=== PATIENT | male | born 1945 | race African-American/Black ===

== ENCOUNTER 2019-03-26 17:03 | Inpatient (IN) | payer MEDICARE ==
[~2019-03-26] VITALS: Ht 188 cm; Wt 66.3 kg
[2019-03-26] MEDS ORDERED: cefTRIAXone 1 GM in NS 55 ML IVPB ONE (17:15)
[2019-03-26] MEDS ORDERED: Solu-MEDROL 125mg Inj IVP ONE (17:15)
[2019-03-26] MEDS ORDERED: Azithromycin 500 MG in NS 275 ML IV ONE (17:15)
--- NOTE | 2019-03-26 17:18 | Emergency Room Report ---
History of Present Illness General Chief Complaint: Dyspnea/Respdistress Source: Patient, EMS Present Illness HPI 74-year-old male, history of COPD, history of smoking, history is limited currently due to patient's acute respiratory distress, comes in with shortness of breath 1 day prior to arrival, no unknown aggravating relieving factors severity is severe, constant, patient has been using accessory muscles per EMS, unknown if sputum production or fever/chills, patient states he is feeling very tired. Allergies: Coded Allergies: No Known Allergies (Unverified , 03/26/19) Patient History Limited by: medical condition - Acute respiratory distress Past Medical History: see triage record Reviewed Nursing Documentation: PMH: Agreed; PSxH: Agreed Review of Systems All Other Systems: limited - Acute respiratory distress Physical Exam Vital Signs Date Time Temp Pulse Resp B/P (MAP) Pulse Ox O2 Delivery O2 Flow Rate FiO2 03/26/19 16:59 98.4 116 28 150/90 (110) 97 Simple Mask 6.0 Sp02 EP Interpretation: reviewed, abnormal - SaO2 reduced General Appearance: severe distress, other - Responsive Head: normocephalic, atraumatic Eyes: bilateral eye PERRL, bilateral eye EOMI ENT: uvula midline, moist mucus membranes Neck: supple, thyroid normal, supple/symm/no masses Respiratory: decreased breath sounds, accessory muscle use, wheezing - Severe wheezing bilaterally Cardiovascular #1: normal peripheral pulses, no edema, no gallop, no murmur, tachycardia Gastrointestinal: non tender, soft, no guarding, no rebound Musculoskeletal: normal inspection Neurologic: alert, responsive Psychiatric: anxious Skin: no rash, warm/dry Procedures Critical Care Time Critical Care Time Given the critical condition in which the patient arrived, the patient was immediately assessed by myself and the nurse, and cardiac monitoring initiated due to the potential for rapid decompensation of the patient's clinical condition. During the course of the patient's stay, I spent a considerable amount of time at the bedside performing serial re-evaluations of the patient's hemodynamic and clinical status because of the recognized potential threat to life or limb in this condition. I then had a chance to review not only all of the available current laboratory and radiographic studies obtained today, but I also reviewed old records available to me at the time. Additionally, any ancillary information available including business systems advisor records were reviewed. Sequential vital signs were obtained. Critical Care time of 71 minutes was performed exclusive of billable procedures. Medical Decision Making Diagnostic Impression: Primary Impression: Respiratory distress Additional Impressions: COPD exacerbation Hypercapnia ER Course 74-year-old male presents with acute respiratory distress, initially altered, concerning for possible COPD exacerbation, hypercapnia, pneumonia superimposed infection Patient was emergently placed on BiPAP magnesium was started, 6 rounds of duo nebs, steroids, fluids and antibiotics were also started Spoke with daughter who states patient is DNR, paperwork was provided Patient required multiple re-evaluations, requiring titration of BiPAP, duo nebs , to improve hypercapnia, please refer to blood gas draws based on reassessments Hypercapnia was slowly improving with continued titration of the BiPAP as well as SaO2 to be below 94% Patient significantly improved will admit patient to stepdown Patient admitted to Dr. Galdamez Laboratory Tests Test 03/26/19 17:05 03/26/19 17:26 03/26/19 18:08 03/26/19 18:55 White Blood Count 4.8 K/UL (4.8-10.8) Red Blood Count 4.96 M/UL (4.70-6.10) Hemoglobin 10.9 G/DL (14.2-18.0) L Hematocrit 36.6 % (42.0-52.0) L Mean Corpuscular Volume 74 FL (80-99) L Mean Corpuscular Hemoglobin 21.9 PG (27.0-31.0) L Mean Corpuscular Hemoglobin Concent 29.7 G/DL (32.0-36.0) L Red Cell Distribution Width 12.5 % (11.6-14.8) Platelet Count 135 K/UL (150-450) L Mean Platelet Volume 6.0 FL (6.5-10.1) L Neutrophils (%) (Auto) 64.3 % (45.0-75.0) Lymphocytes (%) (Auto) 22.7 % (20.0-45.0) Monocytes (%) (Auto) 10.4 % (1.0-10.0) H Eosinophils (%) (Auto) 1.0 % (0.0-3.0) Basophils (%) (Auto) 1.6 % (0.0-2.0) Prothrombin Time 11.6 SEC (9.30-11.50) H Prothrombin Time INR 1.1 (0.9-1.1) PTT 22 SEC (23-33) L Sodium Level 145 MMOL/L (136-145) Potassium Level 3.6 MMOL/L (3.5-5.1) Chloride Level 105 MMOL/L (98-107) Carbon Dioxide Level 35 MMOL/L (21-32) H Anion Gap 5 mmol/L (5-15) Blood Urea Nitrogen 18 mg/dL (7-18) Creatinine 0.7 MG/DL (0.55-1.30) Estimate Glomerular Filtration Rate mL/min (>60) Glucose Level 202 MG/DL (74-106) H Lactic Acid Level 0.80 mmol/L (0.4-2.0) Calcium Level 8.7 MG/DL (8.5-10.1) Phosphorus Level 5.4 MG/DL (2.5-4.9) H Magnesium Level 1.4 MG/DL (1.8-2.4) L Total Bilirubin 0.7 MG/DL (0.2-1.0) Aspartate Amino Transferase (AST) 50 U/L (15-37) H Alanine Aminotransferase (ALT) 56 U/L (12-78) Alkaline Phosphatase 45 U/L (46-116) L Creatine Kinase MB 2.6 NG/ML (0.0-3.6) Troponin I 0.016 ng/mL (0.000-0.056) Pro-B-Type Natriuretic Peptide 149 pg/mL (0-125) H Total Protein 7.7 G/DL (6.4-8.2) Albumin 3.7 G/DL (3.4-5.0) Globulin 4.0 g/dL Albumin/Globulin Ratio 0.9 (1.0-2.7) L Lipase 132 U/L (73-393) Arterial Blood pH 7.120 (7.350-7.450) 7.185 (7.350-7.450) Arterial Blood Partial Pressure CO2 117.1 mmHg (35.0-45.0) *H 99.9 mmHg (35.0-45.0) *H Arterial Blood Partial Pressure O2 160.4 mmHg (75.0-100.0) H 70.5 mmHg (75.0-100.0) L Arterial Blood HCO3 37.2 mmol/L (22.0-26.0) H 36.9 mmol/L (22.0-26.0) H Arterial Blood Oxygen Saturation 0.0 % (95-100) *L 87.9 % (95-100) *L Arterial Blood Base Excess 3.4 (-2-2) H 5.8 (-2-2) H Aneesh Test Positive Positive Urine Color Yellow Urine Appearance Clear Urine pH 5 (4.5-8.0) Urine Specific [place] 1.030 (1.005-1.035) Urine Protein 2+ (NEGATIVE) H Urine Glucose (UA) 3+ (NEGATIVE) H Urine Ketones Negative (NEGATIVE) Urine Blood 5+ (NEGATIVE) H Urine Nitrite Negative (NEGATIVE) Urine Bilirubin Negative (NEGATIVE) Urine Urobilinogen Normal MG/DL (0.0-1.0) Urine Leukocyte Esterase Negative (NEGATIVE) Urine RBC 20-30 /HPF (0 - 0) H Urine WBC 0-2 /HPF (0 - 0) Urine Squamous Epithelial Cells Few /LPF (NONE/OCC) Urine Bacteria Few /HPF (NONE) Urine Hyaline Casts 5-10 /LPF (NONE) H Urine Mucus Moderate /LPF (NONE/OCC) H Test 03/26/19 20:42 Arterial Blood pH 7.260 (7.350-7.450) Arterial Blood Partial Pressure CO2 66.2 mmHg (35.0-45.0) *H Arterial Blood Partial Pressure O2 94.0 mmHg (75.0-100.0) Arterial Blood HCO3 29.2 mmol/L (22.0-26.0) H Arterial Blood Oxygen Saturation 96.0 % (95-100) Arterial Blood Base Excess 1.0 (-2-2) Aneesh Test Positive EKG Diagnostic Results EKG Time: 17:28 EP Interpretation: Sinus tachycardia, rate 117, qtc 460, no acute st elevations , right axis de Rhythm Strip Diag. Results Rhythm Strip Time: 17:18 EP Interpretation: yes Rate: 119 Rhythm: other - Sinus Tachycardia Chest X-Ray Diagnostic Results Chest X-Ray Diagnostic Results : Chest X-Ray Ordered: Yes # of Views/Limited/Complete: 1 View Indication: Shortness of Breath EP Interpretation: Yes Interpretation: other - Left lower lobe consolidation Impression: Other - Left lower lobe consolidation Electronically Signed by: Kyaw Alcala MD Last Vital Signs Date Time Temp Pulse Resp B/P (MAP) Pulse Ox O2 Delivery O2 Flow Rate FiO2 03/26/19 16:59 98.4 116 28 150/90 (110) 97 Simple Mask 6.0 Disposition: ADMITTED INPATIENT Condition: Serious Kyaw Alcala MD Mar 26, 2019 17:18
[2019-03-26 17:26] VITALS: BP 150/90
[2019-03-26 17:41] LABS: BASOPHILS % (AUTO) 1.6 % (0.0-2.0); HEMATOCRIT 36.6 % (42.0-52.0); HEMOGLOBIN 10.9 G/DL (14.2-18.0); LYMPHOCYTES % (AUTO) 22.7 % (20.0-45.0); MEAN CORPUSCULAR VOLUME 74 FL (80-99); MONOCYTES % (AUTO) 10.4 % (1.0-10.0); NEUTROPHILS % (AUTO) 64.3 % (45.0-75.0); PLATELET COUNT 135 K/UL (150-450); RED BLOOD COUNT 4.96 M/UL (4.70-6.10); RED CELL DISTRIBUTION WIDTH 12.5 % (11.6-14.8); WHITE BLOOD COUNT 4.8 K/UL (4.8-10.8)
[2019-03-26 17:42] VITALS: BP 120/80
[2019-03-26] MEDS: Albuterol ud Inhalation HHN SCH ×6 (17:45→18:52)
[2019-03-26] MEDS: Ipratropium 0.02% Inh Soln 2.5ml UD HHN SCH ×6 (17:45→18:52)
[2019-03-26 17:53] LABS: INR 1.1 (0.9-1.1)
[2019-03-26 18:29] LABS: ANION GAP 5 mmol/L (5-15); BLOOD UREA NITROGEN 18 mg/dL (7-18); CALCIUM 8.7 MG/DL (8.5-10.1); CARBON DIOXIDE 35 MMOL/L (21-32); CHLORIDE 105 MMOL/L (98-107); CREATININE 0.7 MG/DL (0.55-1.30); POTASSIUM 3.6 MMOL/L (3.5-5.1); SODIUM 145 MMOL/L (136-145)
[2019-03-26 18:41] LABS: ALANINE AMINOTRANSFERASE 56 U/L (12-78); ALBUMIN 3.7 G/DL (3.4-5.0); ALBUMIN/GLOBULIN RATIO 0.9 (1.0-2.7); ALKALINE PHOSPHATASE 45 U/L (46-116); ASPARTATE AMINO TRANSFERASE 50 U/L (15-37); BILIRUBIN,TOTAL 0.7 MG/DL (0.2-1.0); CKMB 2.6 NG/ML (0.0-3.6); PHOSPHORUS 5.4 MG/DL (2.5-4.9)
[2019-03-26 19:14] LABS: APPEARANCE,URINE CLEAR; BILIRUBIN, URINE NEGATIVE (NEGATIVE); GLUCOSE, URINE (UA) 3+ (NEGATIVE); KETONES,URINE NEGATIVE (NEGATIVE); LEUKOCYTE ESTERASE ,URINE NEGATIVE (NEGATIVE); NITRITE,URINE NEGATIVE (NEGATIVE); PH,URINE 5 (4.5-8.0); PROTEIN,URINE 2+ (NEGATIVE); UROBILINOGEN,URINE NORMAL MG/DL (0.0-1.0)
[2019-03-26 19:15] VITALS: BP 120/80
[2019-03-26 19:15] LABS: COLOR,URINE YELLOW
[2019-03-26] MEDS ORDERED: FLOMAX0.4 MG ORAL (21:16)
[2019-03-26] MEDS ORDERED: FAMOTIDINE20 MG ORAL (21:16)
[2019-03-26] MEDS ORDERED: PROSCAR5 MG ORAL (21:16)
[2019-03-26] MEDS ORDERED: ATIVAN1 MG ORAL (21:16)
[2019-03-26] MEDS ORDERED: LOSARTAN POTASS50 MG ORAL (21:16)
[2019-03-26] MEDS ORDERED: HALOPERIDOL2 MG PO (21:16)
[2019-03-26 21:20] VITALS: BP 120/80
[2019-03-26] MEDS ORDERED: Albuterol 90mcg Inhaler 8gm INH PRN (23:15)
[2019-03-26] MEDS ORDERED: Tylenol #3 tab (300mg/30mg) ORAL PRN (23:15)
[2019-03-27] VITALS: BP 101/65
[2019-03-27] MEDS: Albuterol ud Inhalation HHN SCH ×6 (03:45→22:53)
[2019-03-27 04:00] VITALS: BP 110/66
[2019-03-27 05:31] LABS: HEMATOCRIT 31.8 % (42.0-52.0); HEMOGLOBIN 9.8 G/DL (14.2-18.0); MEAN CORPUSCULAR VOLUME 74 FL (80-99); PLATELET COUNT 145 K/UL (150-450); RED BLOOD COUNT 4.32 M/UL (4.70-6.10); RED CELL DISTRIBUTION WIDTH 13.9 % (11.6-14.8); WHITE BLOOD COUNT 3.9 K/UL (4.8-10.8)
[2019-03-27 05:34] LABS: ANION GAP 0 mmol/L (5-15); BLOOD UREA NITROGEN 21 mg/dL (7-18); CARBON DIOXIDE 37 MMOL/L (21-32); CHLORIDE 105 MMOL/L (98-107); CREATININE 0.8 MG/DL (0.55-1.30); POTASSIUM 4.1 MMOL/L (3.5-5.1); SODIUM 142 MMOL/L (136-145)
[2019-03-27 08:00] VITALS: BP 108/64
[2019-03-27] MEDS: Losartan 50mg tab ORAL SCH (09:00)
[2019-03-27] MEDS: Solu-MEDROL 125mg Inj IVP SCH ×2 (09:16→21:44)
[2019-03-27] MEDS: Tamsulosin 0.4mg cap ORAL SCH (09:16)
--- NOTE | 2019-03-27 09:59 | Diagnostic Imaging Report ---
Indication: Shortness of breath Technique: One view of the chest Comparison: 03/26/2019 Findings: A band of atelectasis is seen in the right perihilar region. The lungs and pleural spaces are otherwise clear. The heart size is normal. The lungs are somewhat hyperinflated Impression: Right perihilar atelectasis, new since previous study No acute process otherwise Mild hyperinflation, suggestive of COPD changes
--- NOTE | 2019-03-27 10:13 | Diagnostic Imaging Report ---
Indication: Dyspnea Technique: One view of the chest Comparison: none Findings: Patchy or nodular opacity is seen in the left upper lobe. Patchy opacities are seen also in the left perihilar region and left lung base. There is generalized perihilar interstitial prominence and central bronchial wall thickening. Impression: Left lung patchy opacities, likely pneumonia. Left upper lobe mass not completely excludable, however. Recommend follow-up to resolution. Acuity indeterminate central bronchial wall thickening
[2019-03-27 12:00] VITALS: BP 111/76
[2019-03-27] MEDS: NovoLOG Insulin Flexpen SUBQ SCH ×2 (12:18→17:40)
--- NOTE | 2019-03-27 12:21 | History & Physical ---
History and Physical History & Physicial 74-year-old male, history of COPD, history of smoking presents with acute respiratory failure and hypercapnia patient placed on BIPAP and was on hospice and sent over to the hospital for evaluation DNR confirmed Patient did improve this am and now verbal off BIPAP without distress PMH COPD dementia BPH respiratory failure MEDS/ALLERGIES reviewed and reconciled PHYSICAL WDWN NAD reduced breath sounds bilaterally without rhonchi or wheeze [id number] without MRG NABS nontender no HSM no CCE nonfocal Labs Test 03/26/19 17:05 03/26/19 17:26 03/26/19 18:08 03/26/19 18:55 White Blood Count 4.8 K/UL (4.8-10.8) Red Blood Count 4.96 M/UL (4.70-6.10) Hemoglobin 10.9 G/DL (14.2-18.0) Hematocrit 36.6 % (42.0-52.0) Mean Corpuscular Volume 74 FL (80-99) Mean Corpuscular Hemoglobin 21.9 PG (27.0-31.0) Mean Corpuscular Hemoglobin Concent 29.7 G/DL (32.0-36.0) Red Cell Distribution Width 12.5 % (11.6-14.8) Platelet Count 135 K/UL (150-450) Mean Platelet Volume 6.0 FL (6.5-10.1) Neutrophils (%) (Auto) 64.3 % (45.0-75.0) Lymphocytes (%) (Auto) 22.7 % (20.0-45.0) Monocytes (%) (Auto) 10.4 % (1.0-10.0) Eosinophils (%) (Auto) 1.0 % (0.0-3.0) Basophils (%) (Auto) 1.6 % (0.0-2.0) Prothrombin Time 11.6 SEC (9.30-11.50) Prothromb Time International Ratio 1.1 (0.9-1.1) Activated Partial Thromboplast Time 22 SEC (23-33) Sodium Level 145 MMOL/L (136-145) Potassium Level 3.6 MMOL/L (3.5-5.1) Chloride Level 105 MMOL/L (98-107) Carbon Dioxide Level 35 MMOL/L (21-32) Anion Gap 5 mmol/L (5-15) Blood Urea Nitrogen 18 mg/dL (7-18) Creatinine 0.7 MG/DL (0.55-1.30) Estimat Glomerular Filtration Rate mL/min (>60) Glucose Level 202 MG/DL (74-106) Lactic Acid Level 0.80 mmol/L (0.4-2.0) Calcium Level 8.7 MG/DL (8.5-10.1) Phosphorus Level 5.4 MG/DL (2.5-4.9) Magnesium Level 1.4 MG/DL (1.8-2.4) Total Bilirubin 0.7 MG/DL (0.2-1.0) Aspartate Amino Transf (AST/SGOT) 50 U/L (15-37) Alanine Aminotransferase (ALT/SGPT) 56 U/L (12-78) Alkaline Phosphatase 45 U/L (46-116) Creatine Kinase MB 2.6 NG/ML (0.0-3.6) Troponin I 0.016 ng/mL (0.000-0.056) Pro-B-Type Natriuretic Peptide 149 pg/mL (0-125) Total Protein 7.7 G/DL (6.4-8.2) Albumin 3.7 G/DL (3.4-5.0) Globulin 4.0 g/dL Albumin/Globulin Ratio 0.9 (1.0-2.7) Lipase 132 U/L (73-393) Arterial Blood pH 7.120 (7.350-7.450) 7.185 (7.350-7.450) Arterial Blood Partial Pressure CO2 117.1 mmHg (35.0-45.0) 99.9 mmHg (35.0-45.0) Arterial Blood Partial Pressure O2 160.4 mmHg (75.0-100.0) 70.5 mmHg (75.0-100.0) Arterial Blood HCO3 37.2 mmol/L (22.0-26.0) 36.9 mmol/L (22.0-26.0) Arterial Blood Oxygen Saturation 0.0 % (95-100) 87.9 % (95-100) Arterial Blood Base Excess 3.4 (-2-2) 5.8 (-2-2) Aneesh Test Positive Positive Urine Color Yellow Urine Appearance Clear Urine pH 5 (4.5-8.0) Urine Specific [place] 1.030 (1.005-1.035) Urine Protein 2+ (NEGATIVE) Urine Glucose (UA) 3+ (NEGATIVE) Urine Ketones Negative (NEGATIVE) Urine Blood 5+ (NEGATIVE) Urine Nitrite Negative (NEGATIVE) Urine Bilirubin Negative (NEGATIVE) Urine Urobilinogen Normal MG/DL (0.0-1.0) Urine Leukocyte Esterase Negative (NEGATIVE) Urine RBC 20-30 /HPF (0 - 0) Urine WBC 0-2 /HPF (0 - 0) Urine Squamous Epithelial Cells Few /LPF (NONE/OCC) Urine Bacteria Few /HPF (NONE) Urine Hyaline Casts 5-10 /LPF (NONE) Urine Mucus Moderate /LPF (NONE/OCC) Test 03/26/19 20:42 03/27/19 03:40 03/27/19 07:52 Arterial Blood pH 7.260 (7.350-7.450) 7.391 (7.350-7.450) Arterial Blood Partial Pressure CO2 66.2 mmHg (35.0-45.0) 51.5 mmHg (35.0-45.0) Arterial Blood Partial Pressure O2 94.0 mmHg (75.0-100.0) 111.6 mmHg (75.0-100.0) Arterial Blood HCO3 29.2 mmol/L (22.0-26.0) 30.5 mmol/L (22.0-26.0) Arterial Blood Oxygen Saturation 96.0 % (95-100) 97.3 % (95-100) Arterial Blood Base Excess 1.0 (-2-2) 4.8 (-2-2) Aneesh Test Positive Positive White Blood Count 3.9 K/UL (4.8-10.8) Red Blood Count 4.32 M/UL (4.70-6.10) Hemoglobin 9.8 G/DL (14.2-18.0) Hematocrit 31.8 % (42.0-52.0) Mean Corpuscular Volume 74 FL (80-99) Mean Corpuscular Hemoglobin 22.7 PG (27.0-31.0) Mean Corpuscular Hemoglobin Concent 30.9 G/DL (32.0-36.0) Red Cell Distribution Width 13.9 % (11.6-14.8) Platelet Count 145 K/UL (150-450) Mean Platelet Volume 7.0 FL (6.5-10.1) Neutrophils (%) (Auto) % (45.0-75.0) Lymphocytes (%) (Auto) % (20.0-45.0) Monocytes (%) (Auto) % (1.0-10.0) Eosinophils (%) (Auto) % (0.0-3.0) Basophils (%) (Auto) % (0.0-2.0) Differential Total Cells Counted 100 Neutrophils % (Manual) 91 % (45-75) Lymphocytes % (Manual) 8 % (20-45) Monocytes % (Manual) 1 % (1-10) Eosinophils % (Manual) 0 % (0-3) Basophils % (Manual) 0 % (0-2) Band Neutrophils 0 % (0-8) Platelet Estimate Decreased Platelet Morphology Normal Sodium Level 142 MMOL/L (136-145) Potassium Level 4.1 MMOL/L (3.5-5.1) Chloride Level 105 MMOL/L (98-107) Carbon Dioxide Level 37 MMOL/L (21-32) Anion Gap 0 mmol/L (5-15) Blood Urea Nitrogen 21 mg/dL (7-18) Creatinine 0.8 MG/DL (0.55-1.30) Estimat Glomerular Filtration Rate mL/min (>60) Glucose Level 151 MG/DL (74-106) Calcium Level 9.0 MG/DL (8.5-10.1) IMPRESSION acute respiratory failure acute on chronic CO2 retention acute renal failure Atelectasis dementia BPH PLAN IV steroids acid base better BIPAP as needed IV hydration [place] to [place] need to discuss Hospice impression, plan, and exam edited and reviewed in detail care discussed with Shadi Montes MD Mar 27, 2019 12:21
[2019-03-27 16:00] VITALS: BP 111/72
[2019-03-27] MEDS ORDERED: cefTRIAXone 1gm/D5W 55ml IVPB SCH ×2 (18:00)
[2019-03-27 20:00] VITALS: BP 118/72
[2019-03-27] MEDS ORDERED: LORazepam 1mg tab ORAL SCH (21:00)
[2019-03-28] VITALS: BP 121/75
[2019-03-28] MEDS: NovoLOG Insulin Flexpen SUBQ SCH ×3 (00:09→12:13)
[2019-03-28] MEDS: Albuterol ud Inhalation HHN SCH ×4 (03:59→14:33)
[2019-03-28 04:00] VITALS: BP 147/89
[2019-03-28 05:43] LABS: ALANINE AMINOTRANSFERASE 45 U/L (12-78); ALBUMIN 3.6 G/DL (3.4-5.0); ALKALINE PHOSPHATASE 34 U/L (46-116); ANION GAP 6 mmol/L (5-15); ASPARTATE AMINO TRANSFERASE 33 U/L (15-37); BILIRUBIN,TOTAL 0.4 MG/DL (0.2-1.0); BLOOD UREA NITROGEN 21 mg/dL (7-18); CALCIUM 8.8 MG/DL (8.5-10.1); CARBON DIOXIDE 29 MMOL/L (21-32); CHLORIDE 105 MMOL/L (98-107); CHOLESTEROL 156 MG/DL (< 200); CREATININE 0.9 MG/DL (0.55-1.30); HDL CHOLESTEROL 74 MG/DL (40-60); POTASSIUM 5.2 MMOL/L (3.5-5.1); SODIUM 140 MMOL/L (136-145); TRIGLYCERIDES 20 MG/DL (30-150)
[2019-03-28 08:00] VITALS: BP 146/87
--- NOTE | 2019-03-28 08:35 | General Progress Note ---
Assessment/Plan Assessment/Plan: IMPRESSION acute respiratory failure acute on chronic CO2 retention acute renal failure Atelectasis dementia BPH elevated troponin BCx + PLAN IV steroids- dc in am add Vanco pending cultures acid base better BIPAP as needed IV hydration monitor troponin dc to [place] to [facility] need to discuss Hospice impression, plan, and exam edited and reviewed in detail care discussed with RN Subjective Allergies: Coded Allergies: No Known Allergies (Unverified , 03/26/19) Subjective care noted bcx+ troponins slightly elevated no sob off BIPAP cardiology noted Objective Last 24 Hour Vital Signs Date Time Temp Pulse Resp B/P (MAP) Pulse Ox O2 Delivery O2 Flow Rate FiO2 03/28/19 04:00 30 03/28/19 04:00 98.5 103 19 147/89 (108) 99 03/28/19 04:00 107 20 100 Bi-Pap 30 104 20 98 03/28/19 04:00 106 03/28/19 04:00 Bi-pap 03/28/19 03:52 101 19 97 Facial 30 03/28/19 01:19 100 21 100 Facial 30 03/28/19 00:00 Bi-pap 03/28/19 00:00 98.5 106 20 121/75 (90) 100 03/28/19 00:00 108 03/28/19 00:00 30 03/27/19 23:30 112 23 99 Facial 30 03/27/19 22:53 107 20 100 Nasal Cannula 2.0 28 104 20 99 03/27/19 20:00 98.6 117 22 118/72 (87) 100 03/27/19 20:00 Bi-pap 03/27/19 20:00 2.0 03/27/19 20:00 122 03/27/19 19:32 99 Nasal Cannula 2.0 28 03/27/19 18:59 119 20 99 Nasal Cannula 2.0 28 117 20 93 03/27/19 16:00 Bi-pap 03/27/19 16:00 117 03/27/19 16:00 2.0 03/27/19 16:00 98.1 120 21 111/72 (85) 100 03/27/19 15:33 100 Nasal Cannula 2.0 28 03/27/19 15:31 121 20 100 Nasal Cannula 2.0 28 120 20 100 03/27/19 12:00 2.0 03/27/19 12:00 98.2 113 20 111/76 (88) 98 03/27/19 12:00 117 03/27/19 12:00 Bi-pap 03/27/19 10:48 113 20 98 Nasal Cannula 2.0 28 114 20 98 03/27/19 09:09 97 Nasal Cannula 2.0 28 03/27/19 09:00 108/64 03/27/19 08:38 109 19 100 Facial 30 Intake and Output 03/27/19 03/28/19 19:00 07:00 Intake Total 350 ml Output Total 1550 ml Balance -1200 ml Intake Oral 350 ml Output Urine Total 1550 ml Laboratory Tests 03/28/19 03:20: Sodium Level 140, Potassium Level 5.2H, Chloride Level 105, Carbon Dioxide Level 29, Anion Gap 6, Blood Urea Nitrogen 21H, Creatinine 0.9, Estimat Glomerular Filtration Rate , Glucose Level 140H, Calcium Level 8.8, Magnesium Level 1.7L, Total Bilirubin 0.4, Aspartate Amino Transf (AST/SGOT) 33, Alanine Aminotransferase (ALT/SGPT) 45, Alkaline Phosphatase 34L, Troponin I 0.144H, Pro -B-Type Natriuretic Peptide 545H, Total Protein 7.3, Albumin 3.6, Globulin 3.7, Albumin/Globulin Ratio 1.0, Triglycerides Level 20L, Cholesterol Level 156, LDL Cholesterol 70, HDL Cholesterol 74H, Cholesterol/HDL Ratio 2.1L, Thyroid Stimulating Hormone (TSH) 0.445 Height (Feet): 6 Height (Inches): 2.00 Weight (Pounds): 146 Objective WDWN NAD clear breath sounds bilaterally without rhonchi or wheeze [id number] without MRG NABS nontender no HSM no CCE nonfocal Shadi Galdamez MD Mar 28, 2019 08:35
[2019-03-28] MEDS: Tamsulosin 0.4mg cap ORAL SCH (08:49)
[2019-03-28] MEDS: Solu-MEDROL 125mg Inj IVP SCH (08:49)
[2019-03-28] MEDS: Losartan 50mg tab ORAL SCH (08:50)
[2019-03-28] MEDS ORDERED: Vancomycin 1.25gm/NS Premix IVPB ONE (10:00)
[2019-03-28 12:00] VITALS: BP 135/77
[2019-03-28 15:00] VITALS: BP 130/80
[2019-03-28] MEDS ORDERED: NS 275ml ONE (15:34)
[2019-03-28] MEDS ORDERED: Tubing IV Secondary IV ONE (15:34)
[2019-03-28] MEDS ORDERED: NS Irrig 1000ml ONE (15:34)
--- NOTE | 2019-03-28 17:15 | Cardiology Report ---
APPROVED REPORT EKG Measurement Heart [id number] Sinus tachycardia with fusion complexes Possible Left atrial enlargement Right superior axis deviation Anterior infarct, age undetermined Abnormal ECG
[2019-03-28] MEDS ORDERED: Vancomycin 750mg/NS 275ml IVPB SCH ×2 (22:00)
--- NOTE | 2019-03-29 08:01 | Discharge Summary ---
Discharge Summary Discharge Summary _ DATE OF ADMISSION: 03/26/2019 DATE OF DISCHARGE: 05/28/2018 DISCHARGED BY: Dr. Galdamez REASON FOR ADMISSION: 74 years old male with history of COPD, dementia, BPH , smoker , presented with acute COW retention, resulting in acute hypercapnic respiratory failure. Patient was tachycardic, tachypneic , and required initially placement of the face mask and then on the BiPAP. ABG revealed severe hypercapnic respiratory failure with pH 7.12 and PCO2 117. Laboratory work-up revealed no leukocytosis, hemoglobin 10.9, hematocrit 36.6, platelet count 136. Stable electrolytes and renal parameters. Glucose 202. Lactic acid 0.8 Magnesium 1.4. Troponin 0.016. Pro BNP 149. EKG revealed sinus tachycardia, no acute ischemic changes. Chest x-ray demonstrated left lung patchy opacity likely pneumonia. Left upper lobe mass not completely excludable. In emergency department patient received nebulizing treatment and started on BiPAP . Emergency room physician discussed with the daughter CODE STATUS , who confirmed DNR/DNI status. Patient received empiric antibiotic . Magnesium was corrected . Patient received initial dose of steroid and subsequently admitted to direct observational unit for further management. HOSPITAL COURSE: Patient admitted to direct observational units and started on IV steroids, IVF and empiric antibiotics. BiPAP continued. Nebulizing treatment with bronchodilator provided. Home medication resumed. Patient was followed up with ABG. Acid-base improved : PCO2 down to 61.5 and pH 7.39 . Patient was able to be weaned from BiPAP to oxygen via nasal cannula. GI prophylaxis provided. Initial troponin was negative. Repeated troponin was minimally elevated- 0.162 and the next repeated- 0.144. Patient denied chest pain. EKG revealed sinus rhythm, no acute ischemic changes . Magnesium replaced. Lipid panel was stable. TSH within normal limits. Blood culture revealed gram-positive cocci . Urinalysis revealed no evidence of UTI. Repeated CXR revealed COPD changes. Vancomycin was added to antibiotic regimen. Blood sugar was managed with sliding scale of insulin. Proscar and Flomax continued. Patient clinically stabilized and was ready for transfer to [facility] for further management FINAL DIAGNOSES: COPD Acute hypercapnic respiratory failure/CO2 retention Positive blood culture Dementia BPH Elevated troponin BPH Atelectasis DISCHARGE MEDICATIONS: List of medication was sent to accepting facility DISCHARGE INSTRUCTIONS: Patient was transferred to [[facility] as per insurance Follow-up with medical provider at the facility. I have been assigned to dictate discharge summary for this account. I was not involved in the patient's management. Monica Keane NP Mar 29, 2019 08:01
--- NOTE | 2019-04-01 01:00 | Progress Note ---
DATE: 03/28/2019 CARDIOLOGY PROGRESS NOTE SUBJECTIVE: The patient's respiratory status has improved. He still requires episodic BiPAP. Monitored rhythm sinus with ventricular ectopics, no sustained arrhythmias noted. Echocardiogram was performed and notable for minimally depressed ejection fraction with anteroseptal and mid septal hypokinesis, diastolic dysfunction, and no pulmonary hypertension. PHYSICAL EXAMINATION: VITAL SIGNS: Blood pressure 147/89, pulse 103, respiratory rate 19, and afebrile on 30% of oxygen by BiPAP. Accessory muscle use. LUNGS: Diminished breath sounds. CARDIAC: Regular rhythm and rate. Normal S1 and S2. No appreciable murmur. ABDOMEN: Soft. EXTREMITIES: No edema. LABORATORY DATA: Troponin yesterday was 0.162, and today 0.144. IMPRESSION: 1. Acute respiratory insufficiency. 2. COPD exacerbation. 3. Acute on chronic respiratory acidosis. 4. Acute myocardial ischemia. 5. Nonsustained ventricular tachycardia. 6. Acute diastolic congestive heart failure. PLAN: 1. BiPAP support. 2. Respiratory hygiene. 3. Cautious use of beta-agonist. 4. DVT prophylaxis. 5. Aspiration precautions. 6. No role for antiarrhythmics, unable to give beta-blockers in this setting due to acute bronchospasm. 7. Anti-platelet therapy. 8. Stable for transfer to [facility] for completion of recover. 9. Consider topical nitrates. Mayur Wheeler M.D. DR: MAITE JOB#: [id number] CC:
--- NOTE | 2019-04-01 01:00 | Consultation ---
DATE OF CONSULTATION: 03/27/2019 CARDIOLOGY CONSULTATION CONSULTING PHYSICIAN: Mayur Wheeler M.D. REQUESTING PHYSICIAN: Shadi Galdamez M.D. REASON FOR CONSULTATION: Ventricular arrhythmia. HISTORY OF PRESENT ILLNESS: This is a 74-year-old male. He has a history of COPD and presented to the hospital yesterday with hypercapnic respiratory failure requiring BiPAP support. The patient apparently has end-stage lung disease and had been on hospice in the past. His condition did improve with BiPAP support; however, he developed episodes of ventricular arrhythmias today nonsustained, asymptomatic and prompting this consultation. PAST MEDICAL HISTORY: Includes COPD, cerebrovascular disease with dementia, and prostatic hypertrophy. ALLERGIES: None known. MEDICATIONS: Reviewed and reconciled. FAMILY HISTORY: Not known. SOCIAL HISTORY: There is a prior smoking history, but quantitation not obtainable. No known history of alcohol abuse. REVIEW OF SYSTEMS: Cannot be reliably obtained as the patient is not able to give any reliable information at this time. PHYSICAL EXAMINATION: VITAL SIGNS: Blood pressure 111/72, pulse 120, respiratory rate 21, and afebrile, on accessary muscle use BiPAP support. LUNGS: Bilateral breath sounds with scattered rhonchi. Few wheezes. HEART: Regular rhythm and rate. Normal S1 and S2 with no murmur, but exam is limited due to respiratory sounds. ABDOMEN: Soft. EXTREMITIES: There is no edema. LABORATORY DATA: White count is 3.9, hemoglobin 9.8, and platelet 145. Sodium 142, potassium 4.1, bicarb 37, BUN 21, creatinine 0.8, and glucose 151. Troponin 0.162. ABG - 7.39, 51, 111. Of note on admission, ABG was 7.18, 100, 70. EKG on admission revealed sinus tachycardia with occasional fusion complexes, right superior axis deviation, and possible anterior infarction of indeterminate age. Radiograph of the chest today right perihilar atelectasis and hyperinflation. IMPRESSION: 1. Paroxysmal ventricular ectopy, nonsustained. 2. COPD exacerbation. 3. Paroxysmal bronchospasm. 4. Acute on chronic respiratory acidosis, improved. 5. Acute respiratory failure, improving. 6. Acute myocardial ischemia and possible NSTEMI. PLAN: 1. Continue respiratory hygiene. 2. Limit use of beta-agonist. 3. Steroids per primary care physician. 4. BiPAP support as needed. 5. Echocardiogram to assess PA systolic pressure and ventricular function. 6. Recheck metabolic parameters and thyroid function. 7. DVT prophylaxis. 8. Anti-platelet therapy with aspirin. Mayur Wheeler M.D. DR: MAITE JOB#: [id number] CC: JARET
--- NOTE | 2019-04-01 10:39 | Cardiology Report ---
APPROVED REPORT EXAM: Two-dimensional and M-mode echocardiogram with Doppler and color Doppler. INDICATION Arrhythmia M-Mode DIMENSIONS IVSd1.1 (0.7-1.1cm)Left Atrium (MM)2.5 (1.6-4.0cm) LVDd5.1 (3.5-5.6cm)Aortic Root3.7 (2.0-3.7cm) PWd1.1 (0.7-1.1cm)Aortic Cusp Exc.2.2 (1.5-2.0cm) IVSs1.3 cm LVDs3.6 (2.5-4.0cm) PWs1.3 cm Technically difficult study due to poor parasternal acoustical windows. Normal left ventricular chamber size. Mild anteroseptal and apical septal hypokinesis. Left ventricular ejection fraction estimated to be 45-50 %. No evidence of left ventricular hypertrophy. No evidence of pericardial effusion. All other cardiac chamber sizes are within normal limits. Focal aortic valve sclerosis with adequate cusp excursion. Thickened mitral valve leaflets with normal excursion. Mitral annulus and aortic root calcification. Normal pulmonic valve structure. Normal tricuspid valve structure. IVC dilated at 2.9 cm without physiologic collapse suggestive of increased RA pressure. A color flow and spectral Doppler study was performed and revealed: Mild aortic insufficiency. Trace mitral regurgitation. 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 Trace tricuspid regurgitation. Tricuspid systolic velocities suggests peak right ventricular systolic pressure of 17 mmHg.
== END 2019-03-28 15:35 | disposition short-term general hospital (02) | DRG 189 ==
LOC: EDBD 17:03 → EMR 17:15 → 2W 20:45 → EDBEDREQ 21:07
PROC: 5A09457 Assistance with Respiratory Ventilation, 24-96 Consecutive Hours, Continuous Positive Airway Pressure (ICD-10-PCS; principal; 2019-03-26)
DX: J96.02 Acute respiratory failure with hypercapnia (principal); I50.31 Acute diastolic (congestive) heart failure; N17.9 Acute kidney failure, unspecified; E87.2 Acidosis; J98.11 Atelectasis; J44.1 Chronic obstructive pulmonary disease with (acute) exacerbation; I47.2 Ventricular tachycardia; Z87.891 Personal history of nicotine dependence; N40.0 Benign prostatic hyperplasia without lower urinary tract symptoms; Z66 Do not resuscitate; R74.8 Abnormal levels of other serum enzymes; F01.50 Vascular dementia, unspecified severity, without behavioral disturbance, psychotic disturbance, mood disturbance, and anxiety; I49.3 Ventricular premature depolarization; I51.3 Intracardiac thrombosis, not elsewhere classified
CPT/HCPCS: 36415; 36600; 71045; 80048; 80053; 80061; 81003; 82553; 82803; 82962; 83605; 83690; 83735; 83880; 84100; 84443; 84484; 85007; 85025; 85610; 85730; 87040; 87181; 93005; 93306; 94640; 94660; 94664; 96365; 96367; 96368; 96375; 99291; J1815; J7030